=== PATIENT | male | born 1935 | race Asian ===

== ENCOUNTER 2019-04-26 08:13 | Emergency (ER) | payer OTHER ==
[~2019-04-26] VITALS: Ht 180.3 cm; Wt 76.2 kg
[2019-04-26 08:48] VITALS: BP 141/67; TEMP 98.3
== END 2019-04-26 09:07 | disposition home or self-care (01) ==
LOC: ED 08:13
DX: S90.862A Insect bite (nonvenomous), left foot, initial encounter (principal); W57.XXXA Bitten or stung by nonvenomous insect and other nonvenomous arthropods, initial encounter; Y92.89 Other specified places as the place of occurrence of the external cause
CPT/HCPCS: 96372; 99283; J0696; J1885